=== PATIENT | female | born 1995 | race Caucasian/White ===

== ENCOUNTER 2016-09-21 19:26 | Emergency (ER) | payer OTHER ==
[~2016-09-21] VITALS: Ht 160 cm; Wt 47.7 kg
[2016-09-21 19:31] VITALS: Ht 160 cm; Wt 47.7 kg
--- NOTE | 2016-09-21 19:41 | ERA ---
ER Documentation Chief Complaint Date/Time DATE: 09/21/16 TIME: 19:41 Chief Complaint BLOOD SPLATTED ON FACE FROM ANOTHER PT. W/ NOSE BLEED. 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 She accidentally had some blood splattered on her face from the patient with epistaxis. There was no involvement of the eyes or the mouth. He denies any eyes irritation. He does not smoke or drink Past medical/surgical history: None ROS All systems reviewed and are negative except as per history of present illness. Physical Exam Vitals Vital Signs Date Time Temp Pulse Resp B/P Pulse Ox O2 Delivery O2 Flow Rate FiO2 09/21/16 19:31 98.0 78 20 110/66 100 Physical Exam Const: No acute distress. Head: Atraumatic. Eyes: Normal Conjunctiva. ENT: Normal External Ears, Nose and Mouth. Neck: Full range of motion. No meningismus. Resp: Clear to auscultation bilaterally. Cardio: Regular rate and rhythm, no murmurs. Abd: Soft, non distended, normal bowel sounds, non tender. Skin: No petechiae or rashes. Back: No midline or flank tenderness. Ext: No cyanosis, or edema. Neur: Awake and alert. No focal deficit Psych: Normal Mood and Affect. Departure Diagnosis: Primary Impression: Exposure to blood or body fluid Condition: Good Comments I advised her to follow-up at [facility] tomorrow for further evaluation BHAVANI EVANS MD September 21, 2016 19:41
== END 2016-09-21 20:01 | disposition home or self-care (01) ==
LOC: E/R 19:26
DX: Z77.21 Contact with and (suspected) exposure to potentially hazardous body fluids (principal)
CPT/HCPCS: 99282